=== PATIENT | male | born 1965 | race Caucasian/White ===

== ENCOUNTER 2022-04-04 14:28 | Emergency (ER) | payer OTHER, SELFPAY ==
[2022-04-04 15:07] VITALS: BP 147/83; PULSE 75; RESP 20; O2SAT 96
--- NOTE | 2022-04-04 15:45 | DI.CT.S_ITS ---
PROCEDURE: CT FACIAL BONES WO CON INDICATIONS: hit w/ baseball, in left neck/mandible TECHNIQUE: Noncontrast 2.5 mm thick axial images acquired from the mandible through the frontal sinuses, with coronal and sagittal reformatting. For radiation dose reduction, the following was used: automated exposure control, adjustment of mA and/or kV according to patient size. COMPARISON: None. FINDINGS: Image quality: Excellent. Bones and teeth: Orbital styles are intact. Sinus styles show no fracture or deformity. Nasal bones and septum are intact. Visualized portions of the mandible demonstrate no fractures or subluxation. Zygomatic arches are intact. Pterygoid plates are intact. Visualized portions of the skull base and auditory canals are intact. Sinuses: Paranasal sinuses are aerated, without fluid levels, mucosal thickening, or mucoceles. Mastoid air cells are aerated. Soft tissues: No edema, masses, or fluid collections. No enlarged lymph nodes. No soft tissue lacerations or debris. Vascular: Visualized vascular structures appear normal in the absence of contrast. Bony vascular foramina and canals are intact. IMPRESSION: No acute traumatic abnormality of the facial bones. Dictated by: Bereket Luna M.D. on 04/04/2022 at 15:29 Approved by: Bereket Luna M.D. on 04/04/2022 at 15:31
--- NOTE | 2022-04-04 15:45 | DI.CT.S_ITS ---
PROCEDURE: CT CERVICAL SPINE WO CON INDICATIONS: hit w/ baseball, in left neck/mandible TECHNIQUE: Noncontrast 3 mm thick sections acquired from the skull base to the T4 level. Sagittal and coronal reformats were then constructed. For radiation dose reduction, the following was used: automated exposure control, adjustment of mA and/or kV according to patient size. COMPARISON: None. FINDINGS: Image quality: Excellent. Bones: No fractures or dislocations. Visualized superior ribs are intact. Soft tissues: Prevertebral soft tissues are normal in thickness. No paravertebral hematomas. No apical pneumothoraces. IMPRESSION: No acute traumatic abnormality of the cervical spine or neck. Dictated by: Bereket Luna M.D. on 04/04/2022 at 15:31 Approved by: Bereket Luna M.D. on 04/04/2022 at 15:33
--- NOTE | 2022-04-04 15:45 | DI.CT.S_ITS ---
PROCEDURE: CT HEAD/BRAIN WO CON INDICATIONS: hit w/ baseball, in left neck/mandible TECHNIQUE: Noncontrast 4.5 mm thick angled axial sections acquired from the foramen magnum to the vertex, with coronal and sagittal reformats. For radiation dose reduction, the following was used: automated exposure control, adjustment of mA and/or kV according to patient size. COMPARISON: None. FINDINGS: Image quality: Excellent. CSF spaces: Basal cisterns are patent. No extra-axial fluid collections. Ventricles are normal in size and shape. Brain: No midline shift. No intracranial masses or hemorrhage. Freitas-white matter interface is normal. Skull and face: Calvarium and visualized facial bones are intact, without suspicious lesions. Sinuses: Visualized sinuses and mastoids are clear. IMPRESSION: No acute intracranial abnormality. Dictated by: Bereket Luna M.D. on 04/04/2022 at 15:26 Approved by: Bereket Luna M.D. on 04/04/2022 at 15:28
--- NOTE | 2022-04-04 15:47 | ED.HEATRA ---
HPI - Head Injury General Chief complaint: Head Injury Stated complaint: baseball to head below left ear Time Seen by Provider: 04/04/22 15:45 Source: patient Mode of arrival: Ambulatory History of Present Illness HPI Narrative: This is a 56-year-old male was working as an [employer] baseball game when a baseball glanced off backwards into the left neck mandible area. Patient states it hit his left clavicle 1st and then hit him in the neck at the angle between the mandible and soft tissue. He had swelling immediately afterwards he does not feel like it is continuing to worsen. He said a mild headache but not persistent. Was slightly stunned but was not knocked out. Has pain at the angle of the mandible. Patient is not have any difficulty with grinding his teeth and is able to open his mouth fully. He denies any hoarseness or changes to voice. He does not feel like there is any swelling in the mouth or airway. Denies any chest pain or shortness of breath. No nausea or vomiting. No numbness, tingling or weakness. No other GI or urinary symptoms. He does not take any anticoagulants. Review of Systems Review of Systems ROS Unobtainable: All systems reviewed & are unremarkable except as noted in HPI and below Exam Narrative Exam Narrative: GEN: Patient appears in mild distress. HEAD: No evidence of, no raccoon/Bailey sign. NECK: Patient has swelling of the left with some erythema, over the mandible and just underneath, no pulsatile mass, no bruit, no contusion or ecchymosis, painless range of motion, trachea midline Negative Nexus criteria, there is no midline line tenderness, distracting injury, altered mental status, neuro deficit, recent EtOH. EYES: PERRLA, EOMI ENT: External inspection normal, trachea is midline, TM's are normal no hemotypanum, Nares are clear, no septal hematoma, no dental or oral injury, airway is normal and with normal occlusion, No bony tenderness RESP: Chest is nontender and has symmetric movement, no ecchymosis, breath sounds are normal no crackles, wheezes or rales CVS: Heart sounds are normal, no murmur noted, No JVD. ABG/GI: Nontender, soft, normal bowel sounds, no distention, no organomegaly NEURO: Oriented AOx3, neuro is grossly intact, sensation and motor is normal all 4 extremities moving, cranial nerves II through XII are intact, GCS is 15 PSYCH: Normal mood and affect SKIN: Intact, warm and dry, no crepitus and without decubitus, no ecchymosis, petechiae or other skin changes. BACK: No CVA tenderness, no vertebral tenderness, no step-off's, no crepitus EXT: Atraumatic, hips are nontender, no pedal edema, normal color and temperature, normal range of motion of extremities with normal tendon exam, 2+ pulses in all four extremities Initial Vital Signs Initial Vital Signs: Vital Signs Pulse Rate 75 04/04/22 15:07 Respiratory Rate 20 04/04/22 15:07 Blood Pressure 147/83 H 04/04/22 15:07 Pulse Oximetry 96 04/04/22 15:07 Oxygen Delivery Method 04/04/22 15:07 Course Orders Ordered: ED Orders 04/04/22 15:45 CT cervical spine wo con Stat CT facial bones wo con Stat CT head/brain wo con Stat Vital Signs Vital signs: Vital Signs - 8 hr 04/04/22 15:07 Pulse Rate 75 Respiratory Rate 20 Blood Pressure 147/83 H Pulse Oximetry 96 Oxygen Delivery Method Room Air MDM - Head Injury Imaging Data CT scan - head: Radiologist's Impression: [place] [address] CT Scan Report Signed Patient: Ever Orozco MR#: [id number] : 1965 Acct:[id number] Age/Sex: 56 / M Date of Service: 04/04/22 Loc: ED Accession Number: [id number] ?? Procedure: CT head/brain wo con Ordering Provider: Sonia Costello D.O. PROCEDURE:? CT HEAD/BRAIN WO CON ? INDICATIONS:? hit w/ baseball, in left neck/mandible ? TECHNIQUE:? Noncontrast 4.5 mm thick angled axial sections acquired from the foramen magnum to the vertex, with coronal and sagittal reformats.? For radiation dose reduction, the following was used:? automated exposure control, adjustment of mA and/or kV according to patient size.? ? COMPARISON:? None. ? FINDINGS:? Image quality:? Excellent.? ? CSF spaces:? Basal cisterns are patent.? No extra-axial fluid collections.? Ventricles are normal in size and shape.? ? Brain:? No midline shift.? No intracranial masses or hemorrhage.? Freitas-white matter interface is normal.? ? Skull and face:? Calvarium and visualized facial bones are intact, without suspicious lesions.? ? Sinuses:? Visualized sinuses and mastoids are clear.? ? IMPRESSION:? No acute intracranial abnormality. ? ? ? Dictated by: Bereket Luna M.D. on 04/04/2022 at 15:26 ? ? Approved by: Bereket Luna M.D. on 04/04/2022 at 15:28?? Facial bones CT: Radiologist's Impression: Close Head CT (Signed) Bereket Luna 04/04/[address] (Signed) Bereket Luna 04/04/[address] (Signed) Bereket Luna - 04/04/22 Launch?[place] [address] CT Scan Report Signed Patient: Ever Orozco MR#: [id number] : 1965 Acct:[id number] Age/Sex: 56 / M Date of Service: 04/04/22 Loc: ED Accession Number: [id number] ?? Procedure: CT facial bones wo con Ordering Provider: Sonia Costello D.O. PROCEDURE:? CT FACIAL BONES WO CON ? INDICATIONS:? hit w/ baseball, in left neck/mandible ? TECHNIQUE:? Noncontrast 2.5 mm thick axial images acquired from the mandible through the frontal sinuses, with coronal and sagittal reformatting.? For radiation dose reduction, the following was used:? automated exposure control, adjustment of mA and/or kV according to patient size.? ? COMPARISON:? None. ? FINDINGS:? Image quality:? Excellent.? ? Bones and teeth:? Orbital styles are intact.? Sinus styles show no fracture or deformity.? Nasal bones and septum are intact.? Visualized portions of the mandible demonstrate no fractures or subluxation.? Zygomatic arches are intact.? Pterygoid plates are intact.? Visualized portions of the skull base and auditory canals are intact.? ? Sinuses:? Paranasal sinuses are aerated, without fluid levels, mucosal thickening, or mucoceles.? Mastoid air cells are aerated.? ? Soft tissues:? No edema, masses, or fluid collections.? No enlarged lymph nodes.? No soft tissue lacerations or debris.? ? Vascular:? Visualized vascular structures appear normal in the absence of contrast.? Bony vascular foramina and canals are intact.? ? IMPRESSION:? No acute traumatic abnormality of the facial bones. ? ? Dictated by: Bereket Luna M.D. on 04/04/2022 at 15:29 ? ? Approved by: Bereket Luna M.D. on 04/04/2022 at 15:31?? CT - cervical spine: Radiologist's Impression: [place] [address] CT Scan Report Signed Patient: Ever Orozco MR#: [id number] : 1965 Acct:[id number] Age/Sex: 56 / M Date of Service: 04/04/22 Loc: ED Accession Number: [id number] ?? Procedure: CT cervical spine wo con Ordering Provider: Sonia Costello D.O. PROCEDURE:? CT CERVICAL SPINE WO CON ? INDICATIONS:? hit w/ baseball, in left neck/mandible ? TECHNIQUE:? Noncontrast 3 mm thick sections acquired from the skull base to the T4 level.? Sagittal and coronal reformats were then constructed.? For radiation dose reduction, the following was used:? automated exposure control, adjustment of mA and/or kV according to patient size.? ? COMPARISON:? None. ? FINDINGS:? Image quality:? Excellent.? ? Bones:? No fractures or dislocations.? Visualized superior ribs are intact.? ? Soft tissues:? Prevertebral soft tissues are normal in thickness.? No paravertebral hematomas.? No apical pneumothoraces.? ? IMPRESSION:? No acute traumatic abnormality of the cervical spine or neck. ? Dictated by: Bereket Luna M.D. on 04/04/2022 at 15:31 ? ? Approved by: Bereket Luna M.D. on 04/04/2022 at 15:33? MDM Narrative Medical decision making narrative: This is a 56-year-old male who had a may small off a bat flying backwards by the batter the clavicle striking him in the neck. Eating swelling immediately which has not been worsening but does have some pain and some mandible based on the location head CT, facial bones and C-spine was included. My suspicion for bony injury is lower of the C-spine but this includes soft tissue area there is no obvious signs of vascular injury type of below would like to at least have included. These are all negative. Patient's exam is otherwise reassuring. His injury occurred about 11:00 a.m. this morning 530 in the evening on reassessment he is not had any new or worsening symptoms and feels stable for discharge at this time. Return precautions were discussed all questions answered. Discharge Plan Departure Patient Disposition: Home Clinical Impression: Contusion of neck, Contusion of face Activity Restrictions/Additional Instructions: Your imaging including your head CT, facial bones and C-spine is reassuring. You may continue to use ice packs to the affected area for 10 minutes hourly. You may take Tylenol up to a 1000 mg every 6 hours and/or ibuprofen up to 600 mg every 6 hours Please return for increasing swelling of her neck, face or airway, lightheadedness or passing out, severe headaches, new vision changes difficulty with speech or hoarseness, new numbness, tingling or weakness in extremities, new chest pain or shortness of breath, persistent vomiting, new bruising or other new or concerning symptoms. Referrals: Helder Hanley MD [Primary Care Provider] - Visit Report Forms: Patient Portal/API
== END 2022-04-04 17:54 | disposition home or self-care (01) ==
PROVIDERS: Emergency Provider Emergency Medicine; PCP Obstetrics & Gynecology
DX: S10.93XA Contusion of unspecified part of neck, initial encounter (principal); S00.83XA Contusion of other part of head, initial encounter; W21.03XA Struck by baseball, initial encounter
CPT/HCPCS: 70450; 70486; 72125; 99281; 99283